=== PATIENT | male | born 1965 | race Caucasian/White ===

== ENCOUNTER 2021-06-06 16:06 | Emergency (ER) | payer MEDICAID ==
--- NOTE | 2021-06-06 16:43 | NUR ---
PT DOES NOT WISH TO BE SEEN. STATES FEELING MUCH BETTER.
== END 2021-06-06 17:08 | disposition home or self-care (01) ==
LOC: ER 16:16
DX: R53.1 Weakness (principal); M54.9 Dorsalgia, unspecified